=== PATIENT | female | born 1975 | race Caucasian/White ===

== ENCOUNTER → 2016-07-09 | Outpatient (CLI) | payer OTHER ==
--- NOTE | 2016-07-09 13:30 | MR ---
Thoracic spine MRI HISTORY: Thoracic spine pain Multiplanar multisequence imaging through the thoracic spine allograft no comparisons There is a mild spinal curvature. Thoracic vertebral bodies show preserved height, alignment, and bon e marrow signal is remarkable for endplate discogenic marrow signal change, there is associated endpl ate spondylosis at T8-9. Associated loss of disc height and signal is present at T8-9. T8-9 shows a left posterior paracentral disc herniation causing some mass effect on the thoracic cord . Thoracic cord signal is maintained. There is no significant central canal stenosis. Facet arthropathy changes are present at the lower th oracic spine. IMPRESSION: Disc herniation at T8-9. Mild spinal curvature.
== END | disposition home or self-care (01) ==
LOC: RADMRIMAIN 10:33
PROVIDERS: ATTEND Physician Assistant
DX: M51.24 Other intervertebral disc displacement, thoracic region (principal); M43.9 Deforming dorsopathy, unspecified
CPT/HCPCS: 72146

== ENCOUNTER → 2017-09-02 | Outpatient (CLI) | payer OTHER ==
--- NOTE | 2017-09-02 09:54 | MR ---
EXAMINATION TYPE: MR cervical spine wo con DATE OF EXAM: 09/02/2017 COMPARISON: NONE HISTORY: Cervical pain TECHNIQUE: Multiplanar, multisequence images of the cervical spine were acquired. C2-C3: Mild uncovertebral joint hypertrophy bilaterally. No focal herniation or canal stenosis. No ne ural foraminal encroachment. C3-C4: No evidence for degenerative disc disease. No disc bulge/herniation or protrusion. No Canal stenosis. Foramina are patent bilaterally. Mild disc desiccation. C4-C5: No evidence for degenerative disc disease. No disc bulge/herniation or protrusion. No Canal stenosis. Foramina are patent bilaterally. C5-C6: No evidence for degenerative disc disease. No disc bulge/herniation or protrusion. No Canal stenosis. Foramina are patent bilaterally. C6-C7: No evidence for degenerative disc disease. Minimal central disc bulging. No Canal stenosis. Foramina are patent bilaterally. C7-T1: No evidence for degenerative disc disease. No disc bulge/herniation or protrusion. No Canal stenosis. Foramina are patent bilaterally. Cervical segments are intact. There is normal alignment. Cervical spinal cord is of normal signal. Craniovertebral junction relationships are within normal limits. IMPRESSION: 1. Mild disc desiccation C2-C3 and C3-C4 with no disc herniation, canal stenosis, or foraminal encroa chment. 2. No abnormal signal seen within the visualized spinal cord. 3. Minimal central disc bulging C6-C7.
== END | disposition home or self-care (01) ==
LOC: RADMRIMAIN 09:16
PROVIDERS: ATTEND Psychiatry & Neurology Neurology
DX: M50.223 Other cervical disc displacement at C6-C7 level (principal)
CPT/HCPCS: 72141

== ENCOUNTER → 2024-09-07 | Outpatient (CLI) | payer OTHER ==
[2024-09-07 15:33] VITALS: BP 120/78; PULSE 80; RESP 16; TEMP 98
--- NOTE | 2024-09-07 17:57 | P.SLEEP ---
History of Present Illness H&P Date: 09/07/24 A 49-year-old female patient, presenting today with her for sleep apnea evaluation. The patient has history of snoring. However, her main complaints seem to be leg jerks and the patient has been noted to kick and jerk her legs frequently at nighttime during sleep. Those leg jerks can be sometimes intense and wake her up from sleep. She has no difficulties in sleep induction or going back to sleep after being aroused in the middle of the night. Leg jerks are not automatic and there is no upper extremity jerks or confusion or loss in bowel or urinary control. The patient denies having any numbness or tingling or chronic restlessness in her lower extremities. Denies having any pain or cramping in her legs. She does sleep talking and she also grinds her teeth at the patient has chronic anxiety and depression and she has been maintained on fluvoxamine 100 mg 1 and half tablet twice a day for the past 10 years. She feels excessively tired and fatigued during the day. She goes to bed at around midnight and she is up and down frequently during the night and ultimately she g ets out of bed at 8:00 in the morning. Her weight has gone up by around 10 pounds over the past 1 year and 30 pounds over the past 5 years. She takes a nap at around noon time and she feels that she is not refreshed or restored following an. She has occasional vivid dreams. No sleep paralysis. No hallucinations. No cataplexy. She is a chronic smoker and she smokes up to 2 pack of cigarettes a day. No alcoholism. No substance abuse. No head trauma. No back pain. Review of Systems Constitutional: Reports daytime sleepiness, Reports fatigue, Reports weight gain Eyes: denies as per HPI, denies blurred vision, denies bulging eye, denies decreased vision, denies diplopia, denies discharge, denies dry eye, denies irritation, denies itching, denies pain, denies photophobia, denies loss of peripheral vision, denies loss of vision, denies tunnel vision/blind spots Ears: deny: decreased hearing, ear discharge, earache, tinnitus Ears, nose, mouth and throat: Reports as per HPI Breasts: absent: as per HPI, change in shape, gynecomastia, masses, nipple discharge, pain, skin changes, swelling Cardiovascular: Reports as per HPI Respiratory: Reports snoring Gastrointestinal: Reports as per HPI Genitourinary: Reports as per HPI Menstruation: Reports as per HPI Musculoskeletal: Reports as per HPI Musculoskeletal: absent: ankle pain, ankle stiffness, ankle swelling, as per HPI, elbow pain, elbow stiffness, elbow swelling, foot pain, foot stiffness, foot swelling, hand pain, hand stiffness, hand swelling, hip pain, hip stiffness, hip swelling, knee pain, knee stiffness, knee swelling, shoulder pain, shoulder stiffness, shoulder swelling, wrist pain, wrist stiffness, wrist swelling Integumentary: Reports as per HPI Neurological: Reports as per HPI Psychiatric: Reports anxiety, Reports change in sleep habits, Reports depression, Reports sleep disturbances Endocrine: Reports as per HPI, Reports fatigue Past Medical History History of Any Multi-Drug Resistant Organisms: None Reported Past Anesthesia/Blood Transfusion Reactions: No Reported Reaction Past Psychological History: Anxiety, Depression Smoking Status: Current every day smoker Past Alcohol Use History: None Reported Past Drug Use History: None Reported - Past Family History Father Family Medical History: Cancer Mother Family Medical History: Diabetes Mellitus Medications and Allergies Home Medications Medication Instructions Recorded Confirmed Type fluvoxaMINE MALEATE [Luvox] 100 mg PO BID 09/07/24 09/07/24 History Physical Exam Vitals: Vital Signs Temp Pulse Resp BP Pulse Ox 09/07/24 15:31 98 F 80 16 120/78 95 Intake and Output 09/07/24 09/07/24 09/07/24 06:59 14:59 22:59 Other: Weight 104.78 kg The patient appeared well nourished and normally developed. Vital signs as documented. Head exam is unremarkable. No scleral icterus or corneal arcus noted. Neck is without jugular venous distension, thyromegaly, or carotid bruits. Carotid upstrokes are brisk bilaterally. Lungs are clear to auscultation and percussion. Cardiac exam reveals the PMI to be normally sized and situated. Rhythm is regular. First and second heart sounds normal. No murmurs, rubs or gallops. Abdominal exam reveals normal bowel sounds, no masses, no organomegaly and no aortic enlargement. Extremities are nonedematous and both femoral and pedal pulses are normal. Examination of the skin revealed no evidence of significant rashes, suspicious appearing nevi or other concerning lesions. Neurologically, the patient is awake and alert and the patient does not have any focal neurological deficit. Cranial nerves are essentially intact. Assessment and Plan Plan: Chronic hypersomnia under investigation. Consider possibility of obstructive sleep apnea. The patient has loud snoring and she has gained weight over the past 5 years and her current [place] score is at 8. At the same time, the patient has unusual leg jerks without clear symptoms of restless leg syndrome. Consider the possibility of apnea induced arousals with secondary leg jerks. This could be also potentially a side effect of fluvoxamine, as the drug itself is known to cause restlessness and tremors and drowsiness. The patient obviously needs to be further investigated. Will proceed with a screening polysomnography. Chronic anxiety Chronic depression Teeth grinding Weight gain and current body mass index of 39.1 Plan Proceed with a screening polysomnography and further recommendations to follow based on results of the sleep study. Sleep Note - Sleep Data ESS Total: 8 - Sleep Note Sleep Note: Temperature: 98 F Pulse Rate: 80 Respiratory Rate: 16 Blood Pressure: 120/78 SpO2: 95 Height: 5 ft 9 in Weight: 104.78 kg BMI: Neck Circumference: 14
== END ==
LOC: 3 N SLEEP 14:27
PROVIDERS: ATTEND Internal Medicine Critical Care Medicine
DX: G47.33 Obstructive sleep apnea (adult) (pediatric) (principal); R63.5 Abnormal weight gain; Z86.59 Personal history of other mental and behavioral disorders; Z68.39 Body mass index [BMI] 39.0-39.9, adult
CPT/HCPCS: 99202